=== PATIENT | male | born 1995 | race Caucasian/White ===

== ENCOUNTER 2023-09-30 22:58 | Emergency (ER) | payer OTHER ==
[2023-09-30 23:26] VITALS: BP 107/59; PULSE 56; RESP 16; TEMP 98.5; BMI 31.1
[2023-10-01] MEDS ORDERED: DEXAMETHASONE SOD PHOSPHATE 10 MG/1 ML VIAL ONE (01:49)
[2023-10-01] MEDS ORDERED: LORATADINE 10 MG TABLET ONE (01:49)
[2023-10-01] MEDS: CALAMINE 8% TOPICAL LOTION 177 ML BOTTLE TP ONE (02:24)
[2023-10-01] MEDS: LORATADINE 10 MG TABLET PO ONE (02:24)
[2023-10-01] MEDS: DEXAMETHASONE SOD PHOSPHATE 10 MG/1 ML VIAL IM ONE (02:24)
== END 2023-10-01 02:25 | disposition home or self-care (01) ==
LOC: JER 22:58
PROC: 3E023GC Introduction of Other Therapeutic Substance into Muscle, Percutaneous Approach (ICD-10-PCS; principal; 2023-10-01)
DX: R21 Rash and other nonspecific skin eruption (principal); L23.7 Allergic contact dermatitis due to plants, except food
CPT/HCPCS: 99284-25; J1100

== ENCOUNTER 2024-01-06 03:29 | Emergency (ER) | payer OTHER ==
[2024-01-06 03:36] VITALS: BP 112/70; PULSE 64; RESP 18; TEMP 98.4; BMI 32.9
[2024-01-06] MEDS ORDERED: DEXAMETHASONE SOD PHOSPHATE 10 MG/1 ML VIAL IM ONE (04:11)
[2024-01-06] MEDS ORDERED: DEXAMETHASONE SOD PHOSPHATE 10 MG/1 ML VIAL ONE (04:15)
== END 2024-01-06 04:26 | disposition home or self-care (01) ==
LOC: JER 03:29
DX: L23.7 Allergic contact dermatitis due to plants, except food (principal)
CPT/HCPCS: 99283-25